=== PATIENT | female | born 1975 | race African-American/Black ===

== ENCOUNTER 2016-12-17 19:05 | Emergency (ER) | payer OTHER ==
[2016-12-17 19:17] VITALS: BP 146/97; TEMP 98.9; BMI 47.0
--- NOTE | 2016-12-17 19:54 | PDOC ---
History of Present Illness - General History Source: Patient Exam Limitations: No Limitations - History of Present Illness Initial Comments: 12/17/16 20:46 Patient is a 41 year old female who presents to the ED with complaints of lightheadedness beginning 1.5 hours prior to arrival in ED. Patient reports driving back to work from house visit with intense urge to relieve herself when she experienced sudden episode of lightheadedness while stuck in traffic. Patient states the lightheadedness felt like a wave overcoming her. She reports bilateral arm numbness as well as tingling secondary to lightheadedness. Patient reports intermittent episodes of sweating secondary to lightheadedness. PAST MEDICAL HISTORY: HTN (resolved, diet change) PAST SURGICAL HISTORY: no significant history FAMILY HISTORY: no pertinent history SOCIAL HISTORY: Pt lives with family and is employed. MEDICATIONS: reviewed ALLERGIES: As per nursing notes <Vinnie Rivera - Last Filed: 12/17/16 20:46> - General History Source: Patient Exam Limitations: No Limitations - History of Present Illness Initial Comments: 12/17/16 21:58 A portion of this note was documented by scribe services under my direction. I have reviewed the details of the note, within reason, and agree with the documentation. The case summary and management plan written by me. 12/17/16 21:59 This is a 41-year-old female who comes in complaining of a panic/anxiety attack. Patient did not identified as that but however her prescription description of it does appear to be a panic anxiety attack. Here in the emergency room patient is quite anxious and experienced another similar attack in the emergency room. Patient otherwise had a workup including labs cardiogram and troponin. All were negative with the exception of an markedly elevated white count of 21.5 however there was no left shift abnormal differential reported. It is also noted that patient had an elevated hemoglobin as well as a mildly elevated platelet level. Patient has a history of diverticulitis but had a brief episode of a sharp stabbing abdominal pain in the emergency room that rapidly resolved and was able to eat a sandwich and have some juice afterwards. Patient denied any history of fevers or symptoms suggestive of an infectious cause for her abnormal CBC. Discussed with patient her abnormal CBC findings and told her it is very important she follow up with her primary care doctor this week and return if she develops any fevers or symptoms suggestive of an infection. <Malcom Cates I - Last Filed: 12/17/16 22:04> - General Chief Complaint: Lightheaded Stated Complaint: DIZZINESS/SHAKING/NUMBNESS Time Seen by Provider: 12/17/16 19:12 Past History <Vinnie Rivera - Last Filed: 12/17/16 20:46> - Past Medical History GI Disorders: Yes (DIVERTIC) - Surgical History Abdominal Surgery: Yes - Psycho/Social/Smoking Cessation Hx Anxiety: No Suicidal Ideation: No Smoking History: Current every day smoker Number of Cigarettes Smoked Daily: 8 Information on smoking cessation initiated: Yes 'Breaking Loose' booklet given: 12/17/16 <Malcom Cates I - Last Filed: 12/17/16 22:04> - Past Medical History Allergies/Adverse Reactions: Allergies Allergy/AdvReac Type Severity Reaction Status Date / Time No Known Allergies Allergy Unverified 12/17/16 19:14 Home Medications: Ambulatory Orders NK [No Known Home Medication] 12/17/16 Review of Systems - Review of Systems Able to Perform ROS?: Yes Comments:: 12/17/16 20:46 General: +Sweating No fevers or chills, no weakness, no weight loss HEENT: + Lightheadedness No change in vision. No sore throat, No ear pain CardioVascular: No chest pain or shortness of breath Respiratory:No cough, or wheezing. Gastrointestinal: no nausea, vomiting, diarrhea or constipation, No rectal bleeding Genitourinary: No dysuria, hematuria, or frequency Musculoskeletal: + Bilateral upper extremity numbness. +Bilateral upper extremity tingles. No joint or muscle pain or swelling Neurologic: No headache, vertigo, dizziness or loss of consciousness Psychiatric: nor depression Skin: No rashes or easy bruising Endocrine: no increased thirst or abnormal weight change Allergic: no skin or latex allergy All other systems reviewed and normal All Other Systems: Reviewed and Negative <Vinnie Rivera - Last Filed: 12/17/16 20:46> *Physical Exam - Vital Signs Last Vital Signs Temp Pulse Resp BP Pulse Ox 98.9 F 85 18 146/97 96 12/17/16 19:14 12/17/16 20:20 12/17/16 19:14 12/17/16 19:14 12/17/16 19:14 - Physical Exam Comments: 12/17/16 20:46 General: Well-nourished well-developed individual, no acute distress HEENT: Throat: Normal, tonsils normal, no erythema or exudate Neck: Supple, no meningeal signs, no lymphadenopathy Eyes::Pupils equal reactive and round, extraocular motion intact Chest: Nontender to palpation Cardiac: S1-S2 normal, regular rate and rhythm, no murmurs rubs or gallops Respiratory: Lungs clear to auscultation bilateral Abdomen: +Morbidly obese. Soft, nondistended, normal bowel sounds, nontender to palpation diffusely Extremities: Warm, dry, no cyanosis, clubbing, or edema Skin: No rashes Neuro: Alert and oriented x3, nonfocal exam, grossly intact, normal gait Psych: Normal mood and affect <Vinnie Rivera - Last Filed: 12/17/16 20:46> - Vital Signs Last Vital Signs Temp Pulse Resp BP Pulse Ox 98.9 F 111 H 18 146/97 96 12/17/16 19:14 12/17/16 19:14 12/17/16 19:14 12/17/16 19:14 12/17/16 19:14 <Malcom Cates I - Last Filed: 12/17/16 22:04> ED Treatment Course - LABORATORY CBC & Chemistry Diagram: 12/17/16 20:44 12/17/16 20:44 <Malcom Cates I - Last Filed: 12/17/16 22:04> *DC/Admit/Observation/Transfer - Attestations Scribe Attestion: 12/17/16 20:47 Documentation prepared by Vinnie Rivera, acting as medical equipment sales for Malcom Ctaes MD. <Vinnie Rivera - Last Filed: 12/17/16 20:46> - Discharge Dispostion Admit: No <Malcom Cates I - Last Filed: 12/17/16 22:04> Diagnosis at time of Disposition: Panic attack - Discharge Dispostion Disposition: HOME Condition at time of disposition: Stable - Referrals Referrals: STAFF,NOT ON [Primary Care Provider] - - Patient Instructions Additional Instructions: Your workup here in the emergency room was normal with the exception of your CBC which had a very elevated white count a mildly elevated hemoglobin level and platelet level. The etiology of this is uncertain sodas very important that you take a copy of your blood work with you to for your primary care doctor for follow-up. You should have your CBC repeated in approximately 1 week to make sure it is normal. If you develop any fevers or symptoms of an infection is important that you return to the emergency room. Return to the emergency department immediately with ANY new, persistent or worsening symptoms. Continue any medications as previously prescribed by your physician. You should follow up with your primary doctor as soon as possible regarding today's emergency department visit. . Please make sure your doctor reviews the results of your emergency evaluation. Thank you for coming to the Emergency Department today for your care. It was a pleasure to see you today. Please note that your evaluation is INCOMPLETE until you follow-up with your doctor.
[2016-12-17 20:21] VITALS: PULSE 85
[2016-12-17 20:54] LABS: MCH 31.1 pg (25.7-33.7); MCHC 33.8 g/dl (32.0-36.0); MEAN CELL VOLUME 92.3 fl (80-96); MEAN PLT VOLUME 8.4 fl (7.5-11.1); PLATELET COUNT 470 K/MM3 (134-434); WHITE BLOOD COUNT 21.5 K/mm3 (4.0-10.8)
[2016-12-17 21:04] LABS: ALBUMIN 3.8 g/dl (3.5-5.0); ALK PHOS 71 U/L (32-92); ANION GAP 6 (8-16); BILIRUBIN,TOTAL 0.5 mg/dl (0.2-1.0); CALCIUM 9.1 mg/dl (8.4-10.2); CO2 25 mmol/L (22-28); CREATININE 0.7 mg/dl (0.6-1.3); GLUCOSE,RANDOM 107 mg/dl (74-106); SGOT/AST 18 U/L (10-42); SGPT/ALT 14 U/L (10-40); TOT PROT 7.9 g/dl (6.4-8.3)
[2016-12-17 23:18] LABS: PLATELET ESTIMATE ADEQUATE (NORMAL)
--- NOTE | 2016-12-18 10:24 | EKG ---
Test Reason : Blood Pressure : / mmHG Vent. Rate : 092 BPM Atrial Rate : 092 BPM P-R Int : 164 ms QRS Dur : 078 ms QT Int : 350 ms P-R-T Axes : 027 036 016 degrees QTc Int : 432 ms NORMAL SINUS RHYTHM NONSPECIFIC ST ABNORMALITY NO PREVIOUS ECGS AVAILABLE Confirmed by ROBERT LYNN MD ([id number]) on 12/18/2016 10:23:50 AM Referred By: DR LUCIO Confirmed By:ROBERT LYNN MD
== END 2016-12-17 22:17 | disposition home or self-care (01) ==
LOC: FER 19:05
DX: F41.0 Panic disorder [episodic paroxysmal anxiety] (principal)
CPT/HCPCS: 36415; 80053; 84484; 85025; 93005; 99284-25